=== PATIENT | male | born 1970 | race Hispanic/Latino ===

== ENCOUNTER 2023-11-07 18:24 | Emergency (ER) | payer OTHER ==
[~2023-11-07] VITALS: Ht 160 cm; Wt 81.6 kg
[2023-11-07] VITALS (20 sets, daily range): BP systolic 110–131; BP diastolic 69–96
[2023-11-07] MEDS ORDERED: METHOCARBAMOL 500 MG/TAB PO ONE (18:40)
[2023-11-07] MEDS ORDERED: KETOROLAC TROMETHAMINE 30 MG/ML SDV IM ONE (18:40)
[2023-11-07] MEDS ORDERED: METHOCARBAMOL500 MG PO (23:38)
[2023-11-07] MEDS ORDERED: MOTRIN800 MG PO (23:38)
== END 2023-11-07 23:24 | disposition home or self-care (01) | DRG 552 ==
LOC: ED 18:24
DX: S16.1XXA Strain of muscle, fascia and tendon at neck level, initial encounter (principal); V43.52XA Car driver injured in collision with other type car in traffic accident, initial encounter; R51.9 Headache, unspecified; M54.50 Low back pain, unspecified